=== PATIENT | male | born 1970 | race Caucasian/White ===

== ENCOUNTER 2016-05-30 09:03 | Emergency (ER) | payer BC, OTHER ==
[2016-05-30] MEDS ORDERED: DEXAMETHASONE 10 MG/ML VIAL PO STA (09:37)
[2016-05-30] MEDS ORDERED: cefTRIAXone 1 GM VIAL IM STA (09:37)
[2016-05-30] MEDS ORDERED: cefTRIAXone 1 GM VIAL ONE (09:39)
[2016-05-30] MEDS ORDERED: LIDOCAINE-MPF 1% 5 ML VIAL ONE (09:39)
[2016-05-30] MEDS ORDERED: CHERRY SYRUP 10 ML UDC PO ONE (09:40)
[2016-05-30] MEDS ORDERED: DEXAMETHASONE 10 MG/ML VIAL ONE (09:40)
== END 2016-05-30 09:55 | disposition home or self-care (01) ==
DX: L03.211 Cellulitis of face (principal); F17.200 Nicotine dependence, unspecified, uncomplicated
CPT/HCPCS: 96372; 99283; A9270

== ENCOUNTER 2021-02-13 08:38 | Outpatient (CLI) | payer OTHER | END 2021-03-03 23:59 | LOC: LAB.N 08:38 | PROVIDERS: ATTEND Physician Assistant Medical | DX: R05.9 Cough, unspecified (principal); Z20.822 Contact with and (suspected) exposure to COVID-19 ==

== ENCOUNTER 2022-07-09 08:42 | Outpatient (CLI) | payer OTHER ==
[2022-07-09 12:00] LABS: BASOPHILS # (AUTO) 0.1 10^3/uL (0.0-0.1); BASOPHILS % (AUTO) 1.1 %; EOSINOPHILS # (AUTO) 0.7 10^3/uL (0.0-0.7); EOSINOPHILS % (AUTO) 7.7 %; HCT - HEMATOCRIT 48.9 % (42.0-52.0); HGB - HEMOGLOBIN 16.5 g/dL (14.0-18.0); LYMPHOCYTES # (AUTO) 2.2 10^3/uL (1.5-3.5); LYMPHOCYTES % (AUTO) 25.5 %; MEAN CORPUSCULAR HEMOGLOBIN 30.6 pg (27.0-31.0); MEAN CORPUSCULAR HGB CONC 33.7 g/dL (32.0-36.0); MEAN CORPUSCULAR VOLUME 90.7 fL (80.0-94.0); MEAN PLATELET VOLUME 12.1 fL (7.4-11.4); MONOCYTES # (AUTO) 0.7 10^3/uL (0.0-1.0); MONOCYTES % (AUTO) 7.6 %; NEUTROPHILS # (AUTO) 5.1 10^3/uL (1.5-6.6); NEUTROPHILS % (AUTO) 57.9 %; PLT - PLATELET COUNT 306 10^3/uL (130-450); RED BLOOD COUNT 5.39 10^6/uL (4.70-6.10); RED CELL DISTRIBUTION WIDTH 14.1 % (12.0-15.0); WHITE BLOOD COUNT 8.7 x10^3/uL (4.8-10.8)
[2022-07-09 12:41] LABS: ALBUMIN 4.4 g/dL (3.2-5.5); ALBUMIN/GLOBULIN RATIO 1.5 (1.0-2.2); ALKALINE PHOSPHATASE 52 IU/L (42-121); ALT ALANINE AMINOTRANSFERASE 48 IU/L (10-60); AST ASPARTATE AMINOTRANSFERASE 29 IU/L (10-42); BILIRUBIN,TOTAL 0.9 mg/dL (0.2-1.0); BUN - BLOOD UREA NITROGEN 22 mg/dL (6-20); CARBON DIOXIDE - CO2 26 mmol/L (21-32); CHLORIDE 110 mmol/L (101-111); CHOL/HDL RATIO 5.1 (<5.0); CHOLESTEROL 220 mg/dL; GFR - MDRD 79 (>89); GLUCOSE 99 mg/dL (70-100); HDL CHOLESTEROL 43 mg/dL; LDL CHOLESTEROL,CALCULATED 154 mg/dL; LDL/HDL RATIO 3.6 (<3.6); POTASSIUM 4.2 mmol/L (3.5-5.0); SODIUM 142 mmol/L (135-145); TOTAL PROTEIN 7.4 g/dL (6.7-8.2); TRIGLYCERIDES 114 mg/dL; VLDL CHOLESTEROL 23 mg/dL
[2022-07-09 12:43] LABS: THYROID STIMULATING HORMONE 1.25 uIU/mL (0.34-5.60)
[2022-07-09 13:01] LABS: ESTIMATED AVERAGE GLUCOSE 111 mg/dL (70-100); HEMOGLOBIN A1c% 5.5 % (4.27-6.07)
== END 2022-07-09 08:43 | disposition home or self-care (01) ==
LOC: LAB.N 08:42
PROVIDERS: ATTEND Nurse Practitioner
DX: R53.83 Other fatigue (principal); Z13.220 Encounter for screening for lipoid disorders; E66.9 Obesity, unspecified; Z12.5 Encounter for screening for malignant neoplasm of prostate; F31.9 Bipolar disorder, unspecified
CPT/HCPCS: 36415; 80050; 80061; 83036; 83721; 84153

== ENCOUNTER 2023-11-11 07:45 | Outpatient (CLI) | payer OTHER ==
[2023-11-11 13:00] LABS: BASOPHILS # (AUTO) 0.1 10^3/uL (0.0-0.1); BASOPHILS % (AUTO) 1.2 %; EOSINOPHILS # (AUTO) 0.5 10^3/uL (0.0-0.7); EOSINOPHILS % (AUTO) 5.8 %; HCT - HEMATOCRIT 48.4 % (42.0-52.0); HGB - HEMOGLOBIN 15.5 g/dL (14.0-18.0); LYMPHOCYTES # (AUTO) 1.9 10^3/uL (1.5-3.5); LYMPHOCYTES % (AUTO) 22.2 %; MEAN CORPUSCULAR HEMOGLOBIN 29.8 pg (27.0-31.0); MEAN CORPUSCULAR VOLUME 92.9 fL (80.0-94.0); MEAN PLATELET VOLUME 11.6 fL (7.4-11.4); MONOCYTES # (AUTO) 0.5 10^3/uL (0.0-1.0); NEUTROPHILS # (AUTO) 5.5 10^3/uL (1.5-6.6); NEUTROPHILS % (AUTO) 64.6 %; PLT - PLATELET COUNT 329 10^3/uL (130-450); RED BLOOD COUNT 5.21 10^6/uL (4.70-6.10); RED CELL DISTRIBUTION WIDTH 14.3 % (12.0-15.0); WHITE BLOOD COUNT 8.5 x10^3/uL (4.8-10.8)
[2023-11-11 13:01] LABS: ALBUMIN 4.4 g/dL (3.2-5.5); ALBUMIN/GLOBULIN RATIO 1.7 (1.0-2.2); ALKALINE PHOSPHATASE 60 IU/L (42-121); ALT ALANINE AMINOTRANSFERASE 27 IU/L (10-60); AST ASPARTATE AMINOTRANSFERASE 18 IU/L (10-42); BILIRUBIN,TOTAL 0.4 mg/dL (0.2-1.0); BUN - BLOOD UREA NITROGEN 12 mg/dL (6-20); CALCIUM 9.6 mg/dL (8.5-10.3); CARBON DIOXIDE - CO2 28 mmol/L (21-32); CHLORIDE 109 mmol/L (101-111); CHOL/HDL RATIO 3.8 (<5.0); CHOLESTEROL 142 mg/dL; GFR - MDRD 78 (>89); GLUCOSE 100 mg/dL (74-104); HDL CHOLESTEROL 37 mg/dL; LDL CHOLESTEROL,CALCULATED 87 mg/dL; LDL/HDL RATIO 2.4 (<3.6); POTASSIUM 4.2 mmol/L (3.5-4.5); SODIUM 141 mmol/L (135-145); TRIGLYCERIDES 92 mg/dL; VLDL CHOLESTEROL 18 mg/dL
[2023-11-11 13:14] LABS: THYROID STIMULATING HORMONE 1.57 uIU/mL (0.34-5.60)
== END 2023-11-11 07:46 | disposition home or self-care (01) ==
LOC: LAB.N 07:45
PROVIDERS: ATTEND Nurse Practitioner
DX: I10 Essential (primary) hypertension (principal); E78.5 Hyperlipidemia, unspecified; Z12.5 Encounter for screening for malignant neoplasm of prostate; Z79.899 Other long term (current) drug therapy; R20.2 Paresthesia of skin
CPT/HCPCS: 36415; 80050; 80061; 82607; 83721; 84153

== ENCOUNTER 2023-12-17 13:06 | Outpatient (CLI) | payer OTHER | END 2023-12-17 23:59 | disposition critical access hospital (66) | LOC: EMS 13:06 | DX: S49.92XA Unspecified injury of left shoulder and upper arm, initial encounter (principal); M25.512 Pain in left shoulder; R51.9 Headache, unspecified; R22.0 Localized swelling, mass and lump, head; V20.49XA Other motorcycle driver injured in collision with pedestrian or animal in traffic accident, initial encounter; Y92.414 Local residential or business street as the place of occurrence of the external cause; Y93.I9 Activity, other involving external motion | CPT/HCPCS: A0425; A0429 ==

== ENCOUNTER 2023-12-17 13:28 | Emergency (ER) | payer OTHER ==
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
[2023-12-17] MEDS: KETOROLAC 30 MG/ML VIAL IVP STA (14:43)
[2023-12-17] MEDS: HYDROmorphone 0.5 MG/0.5 ML SYRINGE IVP STA (14:43)
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
[2023-12-17] MEDS: BACITRACIN ZINC OINT 1 PACKET TOP STA (15:37)
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
[2023-12-17 17:02] VITALS: BP 189/112; O2SAT 95
== END 2023-12-17 17:02 | disposition home or self-care (01) ==
LOC: ED 13:28
DX: S00.31XA Abrasion of nose, initial encounter (principal); S42.192A Fracture of other part of scapula, left shoulder, initial encounter for closed fracture; V20.49XA Other motorcycle driver injured in collision with pedestrian or animal in traffic accident, initial encounter; Y93.55 Activity, bike riding; F17.200 Nicotine dependence, unspecified, uncomplicated
CPT/HCPCS: 70450; 71250; 72125; 73030; 73660; 99283; 99285; J1170

== ENCOUNTER 2023-12-24 08:54 | Outpatient (CLI) | payer OTHER ==
--- NOTE | 2023-12-24 18:26 | XRAY Report ---
Shoulder 2+V LT HISTORY: 53 years of age, FRACTURE TECHNIQUE: Shoulder 2+V LT COMPARISON: 12/17/2023. FINDINGS/IMPRESSION: Mildly comminuted, minimally displaced fracture of the scapula spine, unchanged from prior exam. No i nterval healing. Mild inferior subluxation of the acromion with respect to the distal clavicle, new from prior exam, c oncerning for acromioclavicular sprain. Reviewed by: Celina Diane MD on 12/24/2023 6:25 PM PDT Approved by: Celina Diane MD on 12/24/2023 6:25 PM PDT Station ID: [id number]
== END 2023-12-24 08:55 | disposition home or self-care (01) ==
LOC: DI.N 08:54
PROVIDERS: ATTEND Orthopaedic Surgery
DX: S42.192A Fracture of other part of scapula, left shoulder, initial encounter for closed fracture (principal); S43.112A Subluxation of left acromioclavicular joint, initial encounter

== ENCOUNTER 2024-01-25 11:22 | Outpatient (CLI) | payer OTHER ==
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
== END 2024-01-25 11:23 | disposition home or self-care (01) ==
LOC: DI.N 11:22
PROVIDERS: ATTEND Orthopaedic Surgery
DX: S42.192D Fracture of other part of scapula, left shoulder, subsequent encounter for fracture with routine healing (principal)